=== PATIENT | female | born 1975 | race Two or more races ===

== ENCOUNTER 2024-03-22 11:43 | Emergency (ER) | payer MEDICAID, OTHER ==
[~2024-03-22] VITALS: Ht 165.1 cm; Wt 83.0 kg
[2024-03-22 11:45] VITALS: TEMP 98.4
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
[2024-03-22] MEDS ORDERED: CT SWABBABLE VALVE TRANS SET 1 EA INFUS.SET MC ONE (12:06)
[2024-03-22] MEDS ORDERED: IOHEXOL-350 100 ML VIAL IV ONE (12:06)
[2024-03-22] MEDS ORDERED: IV NS 0.9% 250 ML IV ONE (12:07)
--- NOTE | 2024-03-22 12:09 | NUR ---
PATIENT TAKEN TO CT VIA ARSENIO
--- NOTE | 2024-03-22 12:44 | NUR ---
urine collected and sent to the lab
--- NOTE | 2024-03-22 13:00 | NUR ---
PATIENT COMPLAINS OF HEADACHE AND ROSIE. UPPER EXTREMITIES MD MADE AWARE
--- NOTE | 2024-03-22 13:01 | NUR ---
MD AT BEDSIDE FOR EVALUATION
[2024-03-22] MEDS ORDERED: LORAZEPAM INJ 2 MG/ML VIAL ONE (13:05)
[2024-03-22] MEDS ORDERED: HALOPERIDOL LACTATE INJ 5 MG/ML VIAL ONE (13:05)
[2024-03-22] MEDS: LORAZEPAM INJ 2 MG/ML VIAL IV ONE (13:10)
[2024-03-22] MEDS: HALOPERIDOL LACTATE INJ 5 MG/ML VIAL IV ONE (13:11)
[2024-03-22] MEDS ORDERED: KETO10TA2 PO (13:58)
[2024-03-22] MEDS ORDERED: CYCL5TAB PO (13:58)
[2024-03-22] MEDS ORDERED: HYDR-4209 PO (13:58)
--- NOTE | 2024-03-22 14:34 | NUR ---
Patient discharged to home in stable condition. Written and verbal after care instructions given. Patient verbalizes understanding of instruction.IV removed. Catheter intact and site benign. Pressure and 4x4 applied to site. No bleeding noted.
[2024-03-22 14:35] VITALS: BP 115/75; O2SAT 97
[2024-03-22] MEDS ORDERED: HYDR-4275 PO (15:13)
== END 2024-03-22 14:36 | disposition home or self-care (01) ==
LOC: ER 11:51
DX: S06.0X0A Concussion without loss of consciousness, initial encounter (principal); S13.4XXA Sprain of ligaments of cervical spine, initial encounter; Z79.891 Long term (current) use of opiate analgesic; Z79.899 Other long term (current) drug therapy; V89.2XXA Person injured in unspecified motor-vehicle accident, traffic, initial encounter; Y93.89 Activity, other specified; Y92.89 Other specified places as the place of occurrence of the external cause; Y99.8 Other external cause status
CPT/HCPCS: 99285; 72125; 96374; 96375; 93005; 70450; 72131; 72128; 70498; 70496; 82962; L0172; J2060; J1630; J7050; Q9967